=== PATIENT | female | born 1945 | race Hispanic/Latino ===

== ENCOUNTER 2017-11-18 12:11 | Inpatient (IN) | payer MEDICARE, OTHER ==
[2017-11-18] MEDS ORDERED: Aspirin 325 mg EC Tablets PO STA (13:04)
[2017-11-18] MEDS ORDERED: Albuterol 0.083% Inhal Sol (2.5 mg/3 mL) UD IH STA (13:05)
--- NOTE | 2017-11-18 13:12 | C.PDOC ---
History Of Present Illness 71 y/o female presents to ED with complaints of sob for 5 days with associated occasional cough, weakness and low grade fever. Patient states she took Robitussin with no improvement and went to see PMD today who instructed she come to ED for further evaluation. No other complaints at this time. Time Seen by Provider: 11/18/17 12:25 Chief Complaint (Nursing): Shortness Of Breath History Per: Patient History/Exam Limitations: no limitations Onset/Duration Of Symptoms: Days Current Symptoms Are (Timing): Still Present Past Medical History Reviewed: Historical Data, Nursing Documentation, Vital Signs Vital Signs: Last Vital Signs Temp 97.9 F 11/18/17 17:02 Pulse 92 H 11/18/17 17:02 Resp 22 11/18/17 17:02 BP 111/49 L 11/18/17 17:02 Pulse Ox 92 L 11/18/17 17:35 - Medical History PMH: Arthritis, HTN, Hypercholesterolemia Other PMH: Osteoarthritis, esophageal reflux disease, varicose pain Surgical History: Cholecystectomy - [facility] BLOOD VESSEL BIOPSY (06/19/15) Family History: States: No Known Family Hx - Social History Hx Alcohol Use: No Hx Substance Use: No - Immunization History Hx Tetanus Toxoid Vaccination: No Hx Influenza Vaccination: No Hx Pneumococcal Vaccination: No Review Of Systems Constitutional: Positive for: Fever. Negative for: Chills Respiratory: Positive for: Cough, Shortness of Breath Gastrointestinal: Negative for: Nausea, Vomiting Skin: Negative for: Rash Neurological: Positive for: Weakness Physical Exam - Physical Exam Appears: Non-toxic, Other (In respiratory distress) Skin: Warm, Dry, No Rash Head: Atraumatic, Normacephalic Eye(s): bilateral: Normal Inspection, EOMI Nose: Normal Oral Mucosa: Moist Neck: Normal ROM, Supple Chest: Symmetrical Cardiovascular: Rhythm Regular Respiratory: Accessory Muscle Use, No Rales, No Rhonchi, Wheezing Gastrointestinal/Abdominal: Soft, No Tenderness, No Guarding, No Rebound Back: No CVA Tenderness Extremity: Normal ROM, Capillary Refill (<2 seconds) Neurological/Psych: Oriented x3 ED Course And Treatment - Laboratory Results Result Diagrams: 11/18/17 13:06 11/18/17 13:06 ECG: Interpreted By Me, Viewed By Me ECG Rhythm: Sinus Rhythm Rate From EC (BPM ) O2 Sat by Pulse Oximetry: 92 (RA) - Other Rad CXR X-Ray: Viewed By Me, Read By Radiologist Interpretation: HISTORY: SOB. COMPARISON: None available. TECHNIQUE: Chest , one view. FINDINGS: Examination limited by habitus and hypoinflation. LUNGS : Hypoinflation. No focal consolidation. Please note that chest x-ray has limited sensitivity for the detection of pulmonary masses. PLEURA: No significant pleural effusion identified. No definite pneumothorax . CARDIOVASCULAR: The cardiomediastinal silhouette appears within normal limits of size. Atherosclerotic calcification of the aortic knob. OSSEOUS STRUCTURES : No acute osseous abnormality identified. VISUALIZED UPPER ABDOMEN: Unremarkable. OTHER FINDINGS: None. IMPRESSION: Hypoinflation. No focal consolidation, significant pleural effusion, or definite pneumothorax identified. - CT Scan/US CTA Other Rad Studies (CT/US): Read By Radiologist, Radiology Report Reviewed CT/US Interpretation: PROCEDURE: CT Chest with contrast (Pulmonary Angiogram). HISTORY: Shortness of breath. COMPARISON: Plain radiographs performed the same day. TECHNIQUE: Axial computed tomography images were obtained of the chest in the pulmonary arterial phase of enhancement. Coronal and sagittal reformatted images were created and reviewed. Intravenous contrast dose: 100 mL Visipaque. Radiation dose: Total exam DLP = 269.70 mGy-cm. This CT exam was performed using one or more of the following dose reduction techniques: Automated exposure control, adjustment of the mA and/or kV according to patient size, and/or use of iterative reconstruction technique. FINDINGS: PULMONARY ARTERIES: Please note this examination is of suboptimal diagnostic quality for evaluation of pulmonary embolism due to missed bolus. Allowing for this, there are no filling defects in the central pulmonary arteries. The peripheral pulmonary arteries cannot be evaluated for pulmonary embolism. AORTA: No acute findings. No thoracic aortic aneurysm. LUNGS: There is confluent airspace disease in the right lung base. There is multifocal subsegmental atelectasis in both lower lobes. There are no endobronchial lesions. PLEURAL SPACES: No pleural effusion or pneumothorax. HEART: The heart is normal in size. No pericardial effusion. LYMPH NODES: There are enlarged mediastinal and sub- carinal lymph nodes, the largest precarinal lymph node measures 1.3 cm in short axis. There is also mild bilateral hilar lymphadenopathy. BONES, CHEST WALL: There is diffuse bone demineralization and multilevel degenerative disc disease. No fracture or destructive lesion. OTHER FINDINGS: There are low -attenuation nodules in the left thyroid lobe, the larger in the lower pole measures 8 mm. IMPRESSION: 1. Suboptimal diagnostic quality for evaluation of pulmonary embolism due to missed bolus. Allowing for this, no large central pulmonary embolism. 2. Confluent airspace disease in the right lower lobe may represent pneumonia. Follow-up is recommended. 3. Mild mediastinal and hilar lymphadenopathy, likely reactive, the largest precarinal lymph node measures 1.3 cm in short axis. 4. Multinodular left thyroid lobe. A dedicated thyroid ultrasound on a nonemergent basis is recommended for further evaluation of the thyroid gland. Progress Note: On re evaluation afetr x1 neb treatment patient states she feels better. Discussed with Dr. Flores agrees upon admission Disposition - Disposition Disposition: HOSPITALIZED - PA / ALIGNMENT TECHNICIAN / Resident Statement MD/DO has reviewed & agrees with the documentation as recorded. - Scribe Statement The provider has reviewed the documentation as recorded by the Salvador Carson All medical record entries made by the Salvador were at my direction and personally dictated by me. I have reviewed the chart and agree that the record accurately reflects my personal performance of the history, physical exam, medical decision making, and the department course for this patient. I have also personally directed, reviewed, and agree with the discharge instructions and disposition.
[2017-11-18 13:14] LABS: BASO # 0.1 K/uL (0.0-0.2); BASO % 0.6 % (0.0-2.0); EOS # 0.3 K/uL (0.0-0.7); EOS % 2.3 % (0.0-4.0); HEMOGLOBIN 13.2 g/dL (11.0-16.0); LYMPH # 1.2 K/uL (1.0-4.3); LYMPH % 10.4 % (20.0-40.0); MEAN CELL VOLUME 86.9 fL (81.0-99.0); MEAN CORPUSCULAR HEMOGLOBIN 29.3 pg (27.0-31.0); MEAN CORPUSCULAR HGB CONC 33.7 g/dL (33.0-37.0); MEAN PLATELET VOLUME 7.6 fL (7.2-11.7); MONO # 0.8 K/uL (0.0-0.8); MONO % 7.5 % (0.0-10.0); NEUT # 8.8 K/uL (1.8-7.0); NEUT % 79.2 % (50.0-75.0); RBC 4.51 Mil/uL (3.80-5.20); RED CELL DISTRIBUTION WIDTH 13.1 % (11.5-14.5); WHITE BLOOD COUNT 11.1 K/uL (4.8-10.8)
[2017-11-18] MEDS ORDERED: Aspirin 325 mg EC Tablets PO ONE (13:14)
[2017-11-18] MEDS ORDERED: Albuterol 0.083% Inhal Sol (2.5 mg/3 mL) UD ONE (13:15)
[2017-11-18 13:26] LABS: ALBUMIN 4.1 g/dL (3.5-5.0); ALT/SGPT 38 U/L (9-52); AST/SGOT 24 U/L (14-36); BLOOD UREA NITROGEN 13 mg/dL (7-17); CALCIUM 9.2 mg/dl (8.6-10.4); GFR AFRICAN-AMERICAN 59; GFR NON-AFRICAN AMERICAN 49
[2017-11-18] MEDS ORDERED: Sodium Chloride 0.9% 1,000 ML IV ONE (13:35)
[2017-11-18 13:40] LABS: B-TYPE NATRIURETIC PEPTIDE 118 pg/mL (0-900)
[2017-11-18] MEDS ORDERED: cefTRIAXone IV 1 gm in Dextros 50 ML IV ONE (13:57)
[2017-11-18] MEDS ORDERED: MethylPREDNISolone 40 mg Vial IVP STA (13:57)
[2017-11-18] MEDS ORDERED: Azithromycin 500 MG in Sodium Chloride 0.9% 250 ML IVPB ONE (14:00)
[2017-11-18] MEDS ORDERED: Sodium Chloride 0.9% 1,000 ML ONE (15:13)
[2017-11-18] MEDS ORDERED: MethylPREDNISolone 40 mg Vial ONE (15:13)
[2017-11-18] MEDS ORDERED: Albuterol-Ipratrop 3 mg / 0.5 (3 ml) UD INH STA ×2 (15:22→16:53)
--- NOTE | 2017-11-18 15:35 | RAD ---
HISTORY: SOB COMPARISON: None available. TECHNIQUE: Chest, one view. FINDINGS: Examination limited by habitus and hypoinflation. LUNGS: Hypoinflation. No focal consolidation. Please note that chest x-ray has limited sensitivity for the detection of pulmonary masses. PLEURA: No significant pleural effusion identified. No definite pneumothorax . CARDIOVASCULAR: The cardiomediastinal silhouette appears within normal limits of size. Atherosclerotic calcification of the aortic knob. OSSEOUS STRUCTURES: No acute osseous abnormality identified. VISUALIZED UPPER ABDOMEN: Unremarkable. OTHER FINDINGS: None. IMPRESSION: Hypoinflation. No focal consolidation, significant pleural effusion, or definite pneumothorax identified.
[2017-11-18] MEDS ORDERED: Albuterol-Ipratrop 3 mg / 0.5 (3 ml) UD ONE ×2 (15:37→17:00)
[2017-11-18] MEDS ORDERED: Iodixanol 320 MG/ML 100 ML BOTTLE IV ONE (15:49)
--- NOTE | 2017-11-18 16:44 | CT ---
PROCEDURE: CT Chest with contrast (Pulmonary Angiogram) HISTORY: Shortness of breath COMPARISON: Plain radiographs performed the same day. TECHNIQUE: Axial computed tomography images were obtained of the chest in the pulmonary arterial phase of enhancement. Coronal and sagittal reformatted images were created and reviewed. Intravenous contrast dose: 100 mL Visipaque Radiation dose: Total exam DLP = 269.70 mGy-cm. This CT exam was performed using one or more of the following dose reduction techniques: Automated exposure control, adjustment of the mA and/or kV according to patient size, and/or use of iterative reconstruction technique. FINDINGS: PULMONARY ARTERIES: Please note this examination is of suboptimal diagnostic quality for evaluation of pulmonary embolism due to missed bolus. Allowing for this, there are no filling defects in the central pulmonary arteries. The peripheral pulmonary arteries cannot be evaluated for pulmonary embolism. AORTA: No acute findings. No thoracic aortic aneurysm. LUNGS: There is confluent airspace disease in the right lung base. There is multifocal subsegmental atelectasis in both lower lobes. There are no endobronchial lesions. PLEURAL SPACES: No pleural effusion or pneumothorax. HEART: The heart is normal in size. No pericardial effusion. LYMPH NODES: There are enlarged mediastinal and sub- carinal lymph nodes, the largest precarinal lymph node measures 1.3 cm in short axis. There is also mild bilateral hilar lymphadenopathy. BONES, CHEST WALL: There is diffuse bone demineralization and multilevel degenerative disc disease. No fracture or destructive lesion OTHER FINDINGS: There are low-attenuation nodules in the left thyroid lobe, the larger in the lower pole measures 8 mm. IMPRESSION: 1. Suboptimal diagnostic quality for evaluation of pulmonary embolism due to missed bolus. Allowing for this, no large central pulmonary embolism. 2. Confluent airspace disease in the right lower lobe may represent pneumonia. Follow-up is recommended. 3. Mild mediastinal and hilar lymphadenopathy, likely reactive, the largest precarinal lymph node measures 1.3 cm in short axis. 4. Multinodular left thyroid lobe. A dedicated thyroid ultrasound on a nonemergent basis is recommended for further evaluation of the thyroid gland.
--- NOTE | 2017-11-18 20:04 | CP.PCM.HP ---
History of Present Illness - History of Present Illness History of Present Illness: The chief complaint: shortness of breath and cough History present illness: 71-year-old female with history of hypertension, hypercholesterolemia, osteoarthritis and varicose veins of the legs Recently started having symptoms of cough for 5 days duration. Symptoms gradually got worse. She started having some versus a voice. Now, she's also having experiencing shortness of breath, associate with chest tightness. Coughing noted, with the mucus production large amount noted. Chills present, fever present. Region today feeling slightly better, but the in the hospital patient had low oxygen sats. Patient was seen by me in the office this morning, because of the low oxygen, and shortness of breath I advised her to go to the emergency room. The ER patient was evaluated, CAT scan of the chest, and the labs reviewed. Patient was given antibiotic needed hospitalization Past medical history: Esophageal reflux disease, benign hypertension, hypercholesteremia, osteoarthritis, varicose pain,history of temporal arteritis in the past Past surgical history: Cholecystectomy No known drug allergy Father at the age of 59 secondary to liver cirrhosis, mother at the age of 76 natural cost she had a history of stomach and breast cancer. Social history: Denies any alcohol or smoking. Currently. She capacity. Current medications: Amlodipine 10 mg daily, pravastatin 10 mg daily, omeprazole 40 mg daily, Review of systems Complaining of hoarseness of voice, cough, wheezing, and chest tightness. Shortness of breath. Loss of appetite. Vomiting 3 episodes, no diarrhea, chills and shaking noted On examination: HEENT PERRLA, neck supple, No thyromegaly was noted and left-sided cervical adenopathy noted Patient has a diffuse bilateral wheezing in the lungs, more on the left side CVS regular heart sound, no murmur Abdomen soft Extremities no pedal edema, no leg swelling, pedal pulses are good. LOGISTICS ADMINISTRATOR alert awake oriented x3 no functional neurological deficit Labs reviewed he Nonspecific. Hypoxia Chest x-ray. Elevated diaphragm noted, CT angiogram of the chest is showing evidence of no. No acute pulmonary embolism , only in the major pulmonary arteries visualized. Right lower lung pneumonic changes noted. Assessment/recommendation: 71-year-old female with history of hypertension, hypercholesteremia, osteoarthritis, varicose vein Came to the office with a possible acute respiratory illness, found to have a likely pneumonia, and associated hypoxia. Patient is currently received antibiotic, will continue the IV antibiotic. Bronchodilators. Bronchodilators including corticosteroid. Gross oxygen monitoring, oxygen supplementation. DVT. GI prophylaxis. Elevated d-dimer, but there is no evidence of any embolism in the major pulmonary arteries. Will continue to monitor. Influenza evaluation, blood cultures, respirated support. Present on Admission - Present on Admission Any Indicators Present on Admission: No History of DVT/PE: No History of Uncontrolled Diabetes: No Urinary Catheter: No Decubitus Ulcer Present: No Past Patient History - Tetanus Immunizations Tetanus Immunization: Unknown - Past Medical History & Family History Past Medical History?: Yes - Past Social History Smoking Status: Never Smoked - CARDIAC Hx Hypercholesterolemia: Yes Hx Hypertension: Yes - PULMONARY Hx Respiratory Disorders: No - NEUROLOGICAL Hx Neurological Disorder: No - HEENT Hx Difficulty Chewing: Yes (BECAUSE OF PAIN) Other/Comment: [place] - MUSCULOSKELETAL/RHEUMATOLOGICAL Hx Arthritis: Yes - GASTROINTESTINAL Hx Gastrointestinal Disorders: Yes Hx Gastroesophageal Reflux: Yes - GENITOURINARY/GYNECOLOGICAL Hx Genitourinary Disorders: No - PSYCHIATRIC Hx Substance Use: No - SURGICAL HISTORY Hx Cholecystectomy: Yes - ANESTHESIA Hx Anesthesia: Yes Hx Anesthesia Reactions: Yes (severe vomiting) Meds Allergies/Adverse Reactions: Allergies Allergy/AdvReac Type Severity Reaction Status Date / Time No Known Allergies Allergy Verified 11/18/17 12:40 Results - Vital Signs Recent Vital Signs: Last Vital Signs Temp 98.1 F 11/18/17 18:05 Pulse 96 H 11/18/17 18:05 Resp 18 11/18/17 18:05 BP 103/52 L 11/18/17 18:05 Pulse Ox 92 L 11/18/17 18:09 - Labs Result Diagrams: 11/18/17 13:06 11/18/17 13:06 Labs: Laboratory Results - last 24 hr 11/18/17 11/18/17 11/18/17 13:04 13:06 13:06 WBC 11.1 H RBC 4.51 Hgb 13.2 D Hct 39.2 MCV 86.9 MCH 29.3 MCHC 33.7 RDW 13.1 Plt Count 368 D MPV 7.6 Neut % (Auto) 79.2 H Lymph % (Auto) 10.4 L Gonzales % (Auto) 7.5 Eos % (Auto) 2.3 Baso % (Auto) 0.6 Neut # 8.8 H Lymph # 1.2 Gonzales # 0.8 Eos # 0.3 Baso # 0.1 D-Dimer, Quantitative Sodium 135 Potassium 3.5 L Chloride 102 Carbon Dioxide 21 L Anion Gap 15 BUN 13 Creatinine 1.1 Est GFR ( Amer) 59 Est GFR (Non-Af Amer) 49 Random Glucose 114 H Calcium 9.2 Total Bilirubin 1.0 AST 24 ALT 38 Alkaline Phosphatase 137 H Total Creatine Kinase 144 H CK-MB (Mass) 0.60 Troponin I < 0.0120 NT-Pro-B Natriuret Pep 118 Total Protein 8.3 Albumin 4.1 Globulin 4.2 H Albumin/Globulin Ratio 1.0 Influenza Typ A,B (EIA) Negative for flu a/b 11/18/17 13:06 WBC RBC Hgb Hct MCV MCH MCHC RDW Plt Count MPV Neut % (Auto) Lymph % (Auto) Gonzales % (Auto) Eos % (Auto) Baso % (Auto) Neut # Lymph # Gonzales # Eos # Baso # D-Dimer, Quantitative 699 H Sodium Potassium Chloride Carbon Dioxide Anion Gap BUN Creatinine Est GFR ( Amer) Est GFR (Non-Af Amer) Random Glucose Calcium Total Bilirubin AST ALT Alkaline Phosphatase Total Creatine Kinase CK-MB (Mass) Troponin I NT-Pro-B Natriuret Pep Total Protein Albumin Globulin Albumin/Globulin Ratio Influenza Typ A,B (EIA)
[2017-11-18] MEDS: Albuterol-Ipratrop 3 mg / 0.5 (3 ml) UD INH SCH (20:21)
[2017-11-18] MEDS ORDERED: Promethazine 6.25 MG/5 ML CUP PO STA (21:16)
[2017-11-18] MEDS: MethylPREDNISolone 40 mg Vial IVP SCH (22:17)
[2017-11-19 00:45] VITALS: RESP 20
[2017-11-19] MEDS: Albuterol-Ipratrop 3 mg / 0.5 (3 ml) UD INH SCH ×5 (01:39→21:27)
[2017-11-19] MEDS: MethylPREDNISolone 40 mg Vial IVP SCH ×2 (10:14→21:56)
[2017-11-19] MEDS: Enoxaparin 40 mg Syringe SC SCH (10:15)
[2017-11-19] MEDS: Azithromycin 500 MG in Sodium Chloride 0.9% 250 ML IVPB SCH (10:36)
[2017-11-19] MEDS ORDERED: Potassium Chloride 20 mEq ER Tab PO ONE (15:15)
--- NOTE | 2017-11-19 16:27 | CARD ---
APPROVED REPORT EKG Measurement Heart [id number] <Conclusion> Sinus rhythm with premature atrial complexes Prolonged QT Abnormal ECG
[2017-11-19] MEDS ORDERED: Promethazine 6.25 MG/5 ML CUP PO STA (21:22)
--- NOTE | 2017-11-20 00:19 | CP.PCM.PN ---
Subjective - Date & Time of Evaluation Date of Evaluation: 11/19/17 Time of Evaluation: 22:40 - Subjective Subjective: Patient is still having some cough, wheezing noted. Patient denies any chest pain. Hypoxia is slightly improving. Patient is feeling much better. Currently on IV antibiotic, in The corticosteroid bronchodilators. Solu-Medrol. On examination: Mild inspiratory wheezing bilaterally noted. Nonspecific likely examination otherwise We'll continue the current treatment. We'll follow the patient. Possibly will discharge the patient tomorrow Objective - Vital Signs/Intake and Output Vital Signs (last 24 hours): Temp Pulse Resp BP Pulse Ox 98.4 F 107 H 20 114/66 94 L 11/19/17 15:23 11/19/17 15:23 11/19/17 15:23 11/19/17 15:23 11/19/17 15:23 Intake and Output: 11/19/17 11/20/17 18:59 06:59 Intake Total 880 350 Balance 880 350 - Medications Medications: Current Medications Albuterol/Ipratropium (Duoneb 3 Mg/0.5 Mg (3 Ml) Ud) 3 ml INH RQ6 MADY Last Admin: 11/19/17 21:27 Dose: 3 ml Enoxaparin Sodium (Lovenox) 40 mg SC DAILY [facility] Last Admin: 11/19/17 10:15 Dose: 40 mg Ceftriaxone Sodium 1 gm/ (Sodium Chloride) 100 mls @ 100 mls/hr IVPB DAILY [facility] Last Admin: 11/19/17 10:35 Dose: 100 mls/hr Azithromycin 500 mg/ Sodium (Chloride) 250 mls @ 250 mls/hr IVPB DAILY [facility] Last Admin: 11/19/17 10:36 Dose: 250 mls/hr Methylprednisolone (Solu-Medrol) 40 mg IVP Q12 [facility]ADY Last Admin: 11/19/17 21:56 Dose: 40 mg Pantoprazole Sodium (Protonix Inj) 40 mg IVP DAILY [facility] Last Admin: 11/19/17 10:15 Dose: 40 mg - Labs Labs: 11/18/17 13:06 11/18/17 13:06
[2017-11-20] MEDS: Albuterol-Ipratrop 3 mg / 0.5 (3 ml) UD INH SCH ×3 (01:44→13:24)
[2017-11-20 07:31] LABS: BLOOD UREA NITROGEN 20 mg/dL (7-17); CALCIUM 8.7 mg/dl (8.6-10.4); GFR AFRICAN-AMERICAN > 60; GFR NON-AFRICAN AMERICAN > 60
[2017-11-20 08:49] VITALS: BP 122/67; TEMP 98.4; O2SAT 94
[2017-11-20] MEDS ORDERED: guaiFENesin 200 mg/10 ml Syrup UD PO PRN (08:59)
[2017-11-20] MEDS: MethylPREDNISolone 40 mg Vial IVP SCH (09:50)
[2017-11-20] MEDS: Enoxaparin 40 mg Syringe SC SCH (09:51)
[2017-11-20] MEDS: Azithromycin 500 MG in Sodium Chloride 0.9% 250 ML IVPB SCH (10:55)
[2017-11-20 15:45] VITALS: PULSE 71
--- NOTE | 2017-11-20 17:11 | CP.PCM.PN ---
Subjective - Date & Time of Evaluation Date of Evaluation: 11/20/17 Time of Evaluation: 11:25 - Subjective Subjective: Pt seen today, states feels better, sob an dcough improved denies any headache , abdominal pain a febrile spo2 room air 95% and activity 93% Objective - Vital Signs/Intake and Output Vital Signs (last 24 hours): Temp Pulse Resp BP Pulse Ox 98.4 F 71 20 122/67 94 L 11/20/17 08:48 11/20/17 10:00 11/20/17 08:48 11/20/17 08:48 11/20/17 08:48 Intake and Output: 11/20/17 11/20/17 06:59 18:59 Intake Total 350 830 Balance 350 830 - Labs Labs: 11/18/17 13:06 11/20/17 07:06 - Constitutional Appears: Well, No Acute Distress - Respiratory Exam Respiratory Exam: Rhonchi, NORMAL BREATHING PATTERN - Cardiovascular Exam Cardiovascular Exam: REGULAR RHYTHM, +S1, +S2 - Neurological Exam Neurological Exam: Alert, Awake, Oriented x3 Assessment and Plan - Assessment and Plan (Free Text) Assessment: A/P 71 yr old female with ppmhx of Arthritis, HTN, Hypercholesterolemia admitted sob, hypoxia, cough pateint clinically improved with steroids and antibiotics seen by Dr. Flores today , stable for discharge home otday and f/u with Dr. Flores office in 1 week Discharge plan discussed with patient who understands and agrees withplan Patient instructed to returns to ED if symptoms get worse or any other concerning symptoms
--- NOTE | 2017-11-20 19:05 | CP.PCM.DIS ---
Provider - Provider Date of Admission: 11/18/17 16:23 Attending physician: Jocelin Flores MD Time Spent in preparation of Discharge (in minutes): 45 Hospital Course - Lab Results Lab Results: Micro Results 11/18/17 13:24 Blood Blood Culture - Preliminary NO GROWTH AFTER 48 HOURS 11/18/17 13:00 Blood Blood Culture - Preliminary NO GROWTH AFTER 48 HOURS Most Recent Lab Values WBC 11.1 K/uL (4.8-10.8) H 11/18/17 13:06 RBC 4.51 Mil/uL (3.80-5.20) 11/18/17 13:06 Hgb 13.2 g/dL (11.0-16.0) D 11/18/17 13:06 Hct 39.2 % (34.0-47.0) 11/18/17 13:06 MCV 86.9 fL (81.0-99.0) 11/18/17 13:06 MCH 29.3 pg (27.0-31.0) 11/18/17 13:06 MCHC 33.7 g/dL (33.0-37.0) 11/18/17 13:06 RDW 13.1 % (11.5-14.5) 11/18/17 13:06 Plt Count 368 K/uL (130-400) D 11/18/17 13:06 MPV 7.6 fL (7.2-11.7) 11/18/17 13:06 Neut % (Auto) 79.2 % (50.0-75.0) H 11/18/17 13:06 Lymph % (Auto) 10.4 % (20.0-40.0) L 11/18/17 13:06 [place] % (Auto) 7.5 % (0.0-10.0) 11/18/17 13:06 Eos % (Auto) 2.3 % (0.0-4.0) 11/18/17 13:06 Baso % (Auto) 0.6 % (0.0-2.0) 11/18/17 13:06 Neut # 8.8 K/uL (1.8-7.0) H 11/18/17 13:06 Lymph # 1.2 K/uL (1.0-4.3) 11/18/17 13:06 [place] # 0.8 K/uL (0.0-0.8) 11/18/17 13:06 Eos # 0.3 K/uL (0.0-0.7) 11/18/17 13:06 Baso # 0.1 K/uL (0.0-0.2) 11/18/17 13:06 D-Dimer, Quantitative 699 ng/mlDDU (0-243) H 11/18/17 13:06 Sodium 137 mmol/L (132-148) 11/20/17 07:06 Potassium 3.6 mmol/L (3.6-5.2) 11/20/17 07:06 Chloride 108 mmol/L (98-107) H 11/20/17 07:06 Carbon Dioxide 23 mmol/L (22-30) 11/20/17 07:06 Anion Gap 9 (10-20) L 11/20/17 07:06 BUN 20 mg/dL (7-17) H 11/20/17 07:06 Creatinine 0.9 mg/dL (0.7-1.2) 11/20/17 07:06 Est GFR ( Amer) > 60 11/20/17 07:06 Est GFR (Non-Af Amer) > 60 11/20/17 07:06 Random Glucose 153 mg/dL (65-105) H 11/20/17 07:06 Calcium 8.7 mg/dl (8.6-10.4) 11/20/17 07:06 Total Bilirubin 1.0 mg/dL (0.2-1.3) 11/18/17 13:06 AST 24 U/L (14-36) 11/18/17 13:06 ALT 38 U/L (9-52) 11/18/17 13:06 Alkaline Phosphatase 137 U/L (38-126) H 11/18/17 13:06 Total Creatine Kinase 144 U/L (30-135) H 11/18/17 13:06 CK-MB (Mass) 0.60 ng/mL (0.0-3.38) 11/18/17 13:06 Troponin I < 0.0120 ng/mL (0.00-0.120) 11/18/17 13:06 NT-Pro-B Natriuret Pep 118 pg/mL (0-900) 11/18/17 13:06 Total Protein 8.3 g/dL (6.3-8.3) 11/18/17 13:06 Albumin 4.1 g/dL (3.5-5.0) 11/18/17 13:06 Globulin 4.2 gm/dL (2.2-3.9) H 11/18/17 13:06 Albumin/Globulin Ratio 1.0 (1.0-2.1) 11/18/17 13:06 Influenza Typ A,B (EIA) Negative for flu a/b (NEGATIVE) 11/18/17 13:04 - Hospital Course Hospital Course: The chief complaint: shortness of breath and cough History present illness: 71-year-old female with history of hypertension, hypercholesterolemia, osteoarthritis and varicose veins of the legs Recently started having symptoms of cough for 5 days duration. Symptoms gradually got worse. She started having some versus a voice. Now, she's also having experiencing shortness of breath, associate with chest tightness. Coughing noted, with the mucus production large amount noted. Chills present, fever present. Region today feeling slightly better, but the in the hospital patient had low oxygen sats. Patient was seen by me in the office this morning, because of the low oxygen, and shortness of breath I advised her to go to the emergency room. The ER patient was evaluated, CAT scan of the chest, and the labs reviewed. Patient was given antibiotic needed hospitalization Past medical history: Esophageal reflux disease, benign hypertension, hypercholesteremia, osteoarthritis, varicose pain,history of temporal arteritis in the past Past surgical history: Cholecystectomy No known drug allergy Father at the age of 59 secondary to liver cirrhosis, mother at the age of 76 natural cost she had a history of stomach and breast cancer. Social history: Denies any alcohol or smoking. Currently. She capacity. Current medications: Amlodipine 10 mg daily, pravastatin 10 mg daily, omeprazole 40 mg daily, Review of systems Complaining of hoarseness of voice, cough, wheezing, and chest tightness. Shortness of breath. Loss of appetite. Vomiting 3 episodes, no diarrhea, chills and shaking noted On examination: HEENT PERRLA, neck supple, No thyromegaly was noted and left-sided cervical adenopathy noted Patient has a diffuse bilateral wheezing in the lungs, more on the left side CVS regular heart sound, no murmur Abdomen soft Extremities no pedal edema, no leg swelling, pedal pulses are good. [employer] alert awake oriented x3 no functional neurological deficit Labs reviewed he Nonspecific. Hypoxia Chest x-ray. Elevated diaphragm noted, CT angiogram of the chest is showing evidence of no. No acute pulmonary embolism , only in the major pulmonary arteries visualized. Right lower lung pneumonic changes noted. Assessment/recommendation: 71-year-old female with history of hypertension, hypercholesteremia, osteoarthritis, varicose vein Came to the office with a possible acute respiratory illness, found to have a likely pneumonia, and associated hypoxia. Patient is currently received antibiotic, will continue the IV antibiotic. Bronchodilators. Bronchodilators including corticosteroid. Gross oxygen monitoring, oxygen supplementation. DVT. GI prophylaxis. Elevated d-dimer, but there is no evidence of any embolism in the major pulmonary arteries. Will continue to monitor. Influenza evaluation, blood cultures, respirated support. Patient initially hospitalized with acute bronchitis with a possible new pneumonia. Patient underwent a CT scan of the chest with IV contrast to rule out pulmonary embolism. There is no evidence of central pulmonary embolism noted. Patient is otherwise stable. She received intravenous IV antibiotic, intravenous Solu-Medrol, bronchodilators. Soreness of throat got better, and I scarred better, cough is less. No fever noted. Tolerating the medications. Clinically stable for discharge home. Patient will be discharged home she'll follow-up as an outpatient Final diagnoses possible acute bronchitis, early pneumonia. Community-acquired pneumonia likely. Patient will continue bronchodilators, prednisone, Zithromax 500 mg daily for 5 days. She will follow-up as outpatient in 1 week. Medications reviewed and reconciled. Probiotics advised. Follow-up the patient Discharge Plan - Discharge Medications Prescriptions: Azithromycin 500 mg PO DAILY #5 tablet predniSONE [Prednisone] 20 mg PO DAILY 6 Days #6 tab - Follow Up Plan Condition: GOOD Disposition: HOME/ ROUTINE Instructions: Prednisone (By mouth), Azithromycin (By mouth), Regular Diet (DC) , Dyspnea (GEN), Hypoxia (GEN), Pneumonia (DC) Additional Instructions: Please f/u with Dr. Henderson office in 1 week Please continue medication as per Med. REc. Referrals: Jocelin Flores MD [Staff Provider] -
== END 2017-11-20 16:00 | disposition home or self-care (01) | DRG 194 ==
LOC: C.ER 12:11 → C.9E 16:23 → C.6T 17:19
PROVIDERS: ADMIT Internal Medicine; ATTEND Internal Medicine
DX: J18.9 Pneumonia, unspecified organism (principal); J20.9 Acute bronchitis, unspecified; J98.11 Atelectasis; R09.02 Hypoxemia; I10 Essential (primary) hypertension; K21.9 Gastro-esophageal reflux disease without esophagitis; M19.90 Unspecified osteoarthritis, unspecified site; M81.0 Age-related osteoporosis without current pathological fracture; R79.1 Abnormal coagulation profile; E78.00 Pure hypercholesterolemia, unspecified; Z90.49 Acquired absence of other specified parts of digestive tract